=== PATIENT | female | born 1960 | race American Indian/Alaskan Native ===

== ENCOUNTER 2016-10-09 08:10 | Outpatient (CLI) | payer OTHER ==
--- NOTE | 2016-10-12 11:28 | Nuclear Medicine Report ---
OctreoScan: Patient with carcinoid tumor. Following injection of indium-111 octreotide whole body imaging was obtained at 4 hours and 24 hours. Anterior and posterior images were included. Normal physiologic activity identified on both scans with a relatively large amount of bowel activity noted at 24 hours. No abnormal accumulation of activity identified on either of these scans. At 24 hours SPECT imaging was obtained over the chest, abdomen, and pelvis. Transverse sagittal and coronal images were included. No abnormal areas of uptake were identified. Impression: No metastases identified.
== END 2016-10-09 08:11 | disposition home or self-care (01) ==
LOC: NM 08:10
PROVIDERS: ATTEND Internal Medicine Hematology & Oncology
DX: D3A.019 Benign carcinoid tumor of the small intestine, unspecified portion (principal)
CPT/HCPCS: 78803; 78804; A9572